=== PATIENT | female | born 1955 ===

== ENCOUNTER 2017-01-13 10:29 | Outpatient (CLI) | payer BC ==
--- NOTE | 2017-01-13 14:34 | Mammography Report ---
BILATERAL DIGITAL SCREENING MAMMOGRAM with CAD: 01/13/17 10:29:00 CLINICAL: Routine screening.Breast cancer survivor status post left partial mastectomy. COMPARISON:09/06/15 FINDINGS: The right breast is heterogeneously dense, which may obscure small masses in the left breast is relatively fatty. A partially circumscribed oval right focal asymmetry at 6 o'clock requires additional imaging. Left upper outer postsurgical scar with benign calcifications. IMPRESSION: Right asymmetry requiring further workup. BI-RADS CATEGORY: 0 -- Additional Imaging Evaluation Required RECOMMENDATION: Recall for right lateralmedial , spot compression CC and MLO views and right breast ultrasound if needed. ACR BI-RADS MAMMOGRAPHIC CODES: 0 = Needs additional imaging evaluation; 1 = Negative; 2 = Benign; 3 = Probably benign; 4 = Suspicious; 5 = Malignant; 6 = Known biopsy-proven malignancy COMMENT: 1. Dense breast tissue, i.e., adenosis, fibrocystic changes, etc., may obscure an underlying neoplasm. 2. Approximately 10% of cancers are not detected with mammography. 3. A negative mammography report should not delay biopsy if a clinically suspicious mass is present. COMMENT: Patient follow-up letters are generated via our [employer] application.
== END 2017-01-13 10:30 | disposition home or self-care (01) ==
LOC: SPVWC 10:29
PROVIDERS: ATTEND Obstetrics & Gynecology
DX: Z12.31 Encounter for screening mammogram for malignant neoplasm of breast (principal); Z90.12 Acquired absence of left breast and nipple
CPT/HCPCS: 77067; G0202

== ENCOUNTER 2017-02-05 14:16 | Outpatient (CLI) | payer BC ==
--- NOTE | 2017-02-06 08:28 | Mammography Report ---
RIGHT DIGITAL DIAGNOSTIC MAMMOGRAM and RIGHT BREAST ULTRASOUND: 02/05/17 14:16:00 CLINICAL: Recalled for asymmetry. COMPARISON:02/05/17 screening FINDINGS: Lateralmedial and spot compression MLO and CC views were performed. A low-density partially circumscribed asymmetry persists on all views. Ultrasound of the right breast demonstrated a benign cyst at 7 o'clock 3 cm from the nipple measuring 1.3 x 1.0 x 0.5 cm. It correlates with the mammographic density. In addition, a subareolar complex cyst with low level internal echoes measures 1.1 x 0.8 x 1.1 cm. This cyst was larger on a prior ultrasound done on 09/06/15. IMPRESSION: Benign cysts. BI-RADS CATEGORY: 2 - - Benign RECOMMENDATION: Routine mammographic screening in one year. ACR BI-RADS MAMMOGRAPHIC CODES: 0 = Needs additional imaging evaluation; 1 = Negative; 2 = Benign; 3 = Probably benign; 4 = Suspicious; 5 = Malignant; 6 = Known biopsy-proven malignancy COMMENT: 1. Dense breast tissue, i.e., adenosis, fibrocystic changes, etc., may obscure an underlying neoplasm. 2. Approximately 10% of cancers are not detected with mammography. 3. A negative mammography report should not delay biopsy if a clinically suspicious mass is present. COMMENT: Patient follow-up letters are generated via our [employer] application.
== END 2017-02-05 14:17 | disposition home or self-care (01) ==
LOC: SPVWC 14:16
PROVIDERS: ATTEND Obstetrics & Gynecology
DX: N60.01 Solitary cyst of right breast (principal)
CPT/HCPCS: 76642; G0206